=== PATIENT | male | born 1975 | race Caucasian/White ===

== ENCOUNTER 2025-08-17 07:03 | Outpatient (RCR) | payer BC, SELFPAY ==
--- NOTE | 2025-04-10 14:32 | CR1_ITS ---
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 Electronically Signed On 04-11-2025 14:03:31 EDT by Rios Wilburn
--- NOTE | 2025-04-12 13:13 | CR1_ITS ---
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 Electronically Signed On 04-12-2025 17:24:43 EDT by Rios Wilburn
--- NOTE | 2025-05-03 14:48 | CR1_ITS ---
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 Electronically Signed On 05-10-2025 10:04:48 EDT by Rios Wilburn
--- NOTE | 2025-06-06 14:20 | CR1_ITS ---
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 Interpretive Statements Patient may continue cardiac rehab as outlined in the treatment plan. Electronically Signed On 06-09-2025 10:26:45 EDT by HIEN TOUSSAINT M.D.
--- NOTE | 2025-07-04 14:23 | CR1_ITS ---
The 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 Order Number: [id number] Fanta MD: HIEN TOUSSAINT M.D. Interpretive Statements Patient may continue cardiac rehab as outlined in the treatment plan. Electronically Signed On 07-19-2025 17:57:43 EDT by HIEN TOUSSAINT M.D.
--- NOTE | 2025-08-03 11:51 | CR1_ITS ---
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 Interpretive Statements Patient may continue cardiac rehab as outlined in the treatment plan. Electronically Signed On 08-03-2025 15:35:59 EDT by HIEN TOUSSAINT M.D.
--- NOTE | 2025-08-17 07:32 | CR1_ITS ---
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 Order Number: [id number] Fanta MD: HIEN TOUSSAINT M.D. Interpretive Statements Electronically Signed On 08-17-2025 19:56:59 EDT by HIEN TOUSSAINT M.D.
== END 2025-08-17 14:53 | disposition home or self-care (01) ==
LOC: CR 07:03
PROVIDERS: PCP Family Medicine
DX: I21.4 Non-ST elevation (NSTEMI) myocardial infarction (principal); Z98.61 Coronary angioplasty status
CPT/HCPCS: 93798